=== PATIENT | male | born 1950 | race Caucasian/White ===

== ENCOUNTER 2019-09-05 11:36 | Day surgery (SDC) | payer SELFPAY ==
[~2019-09-05] VITALS: Ht 188 cm; Wt 74.6 kg
--- NOTE | 2019-09-05 13:04 | NUR ---
09/05/19 1304 Radha Rainey RECIEVED REPORT FROM [facility]
--- NOTE | 2019-09-05 14:33 | NUR ---
09/05/19 1433 Radha Rainey LIDOCAINE JELLY APPLIED TO ANUS
== END 2019-09-05 14:20 | disposition home or self-care (01) ==
LOC: ORSCSDS 11:36
PROVIDERS: Surgery
PROC: 0DJD8ZZ Inspection of Lower Intestinal Tract, Via Natural or Artificial Opening Endoscopic (ICD-10-PCS; principal; 2019-09-05 14:45)
DX: K64.4 Residual hemorrhoidal skin tags (principal); K64.8 Other hemorrhoids; A63.0 Anogenital (venereal) warts; K62.5 Hemorrhage of anus and rectum
CPT/HCPCS: J2405; J2704; J7120

== ENCOUNTER 2019-09-14 07:52 | Day surgery (SDC) | payer OTHER ==
[~2019-09-14] VITALS: Ht 188 cm; Wt 75.8 kg
[~2019-09-14 07:52] MED LIST: METAMUCIL0.4 G1 PO
--- NOTE | 2019-09-14 08:28 | NUR ---
History, Chart, Medications and Allergies reviewed before start of procedure. Lungs clear T/O to Auscultation. Patient confirms NPO status and agrees with scheduled surgery. Pre-Op teaching done. Pt verbalizes understanding. PT REPORTS DOING ENEMA THIS MORNING.
--- NOTE | 2019-09-14 09:18 | NUR ---
ASSUMED CARE OF PT
--- NOTE | 2019-09-14 10:08 | NUR ---
Ambulatory in Day Surgery History, Chart, Medications and Allergies reviewed before start of procedure.Patient confirms NPO status and agrees with scheduled surgery. Patient reports completing Chlorhexadine shower X2 prior to admission to hospital.Lungs clear T/O to Auscultation. Patient States Post-Procedure ride home has been arranged WITH . UPPER DENTURES WILL BE REMOVED AND TAKEN TO PACU.
--- NOTE | 2019-09-14 10:24 | NUR ---
COVERING CHERELLE IZAGUIRRE FOR MORNING BREAK PATIENT REQUESTION WARMER AND PROVIDED WARMTH FOR PATIENT WITH BLANKET.
--- NOTE | 2019-09-14 13:28 | NUR ---
PT PROVIDED WARM BLANKETS AND HEATER FOR SHIVERING. TOLERATING FOOD AND FLUID. GAVE PAIN PILL
--- NOTE | 2019-09-14 13:56 | NUR ---
NAUSEA RESOLVED WITH REGLAN. Patient up to Ambulate independently. Gait steady. Discharge instructions reviewed with patient. Patient verbalizes understanding. Copy given to patient to take home. Patient States Post-Procedure ride home has been arranged. Discharged via wheelchair to private car for ride home. ALL BELONINGS RETURNED TO P[ATIENT. NO BLEEDING NOPTED. PROVIDED JAME PAD.
[2019-09-15] MEDS ORDERED: Flomax0.4 MG PO (09:33)
== END 2019-09-14 23:11 | disposition home or self-care (01) ==
LOC: ORSCMMR 07:52 → ORD 09:15 → ORSCMMR 09:15
PROVIDERS: Surgery
PROC: 06BY0ZC Excision of Hemorrhoidal Plexus, Open Approach (ICD-10-PCS; principal; 2019-09-14 09:15)
DX: K64.2 Third degree hemorrhoids (principal); A63.0 Anogenital (venereal) warts
CPT/HCPCS: 88304; A9270-GY; J0694; J1100; J1885; J2250; J2405; J2704; J2710; J2765; J3010; J7120

== ENCOUNTER 2019-09-18 16:02 | Emergency (ER) | payer OTHER ==
[~2019-09-18] VITALS: Ht 188 cm; Wt 74.8 kg
[~2019-09-18 16:02] MED LIST changes: +Flomax0.4 MG PO
== END 2019-09-18 17:10 | disposition home or self-care (01) ==
LOC: ER 16:02
DX: R33.9 Retention of urine, unspecified (principal); Z79.899 Other long term (current) drug therapy; Z98.890 Other specified postprocedural states
CPT/HCPCS: 51702; 99283-25